=== PATIENT | male | born 1940 | race Caucasian/White ===

== ENCOUNTER → 2017-01-05 | Outpatient (CLI) | payer MEDICARE | END | disposition home or self-care (01) | LOC: PCVCCLINIC 12:31 | PROVIDERS: ATTEND Internal Medicine Cardiovascular Disease | DX: I25.10 Atherosclerotic heart disease of native coronary artery without angina pectoris (principal); I10 Essential (primary) hypertension; I44.1 Atrioventricular block, second degree; E78.00 Pure hypercholesterolemia, unspecified; F03.90 Unspecified dementia, unspecified severity, without behavioral disturbance, psychotic disturbance, mood disturbance, and anxiety; G45.9 Transient cerebral ischemic attack, unspecified; Z95.1 Presence of aortocoronary bypass graft; Z95.5 Presence of coronary angioplasty implant and graft; Z79.82 Long term (current) use of aspirin; Z79.899 Other long term (current) drug therapy | CPT/HCPCS: 93005; G0463 ==

== ENCOUNTER → 2017-07-04 | Outpatient (CLI) | payer MEDICARE | END | disposition home or self-care (01) | LOC: PCVCCLINIC 13:08 | PROVIDERS: ATTEND Internal Medicine Cardiovascular Disease | DX: I25.10 Atherosclerotic heart disease of native coronary artery without angina pectoris (principal); E78.00 Pure hypercholesterolemia, unspecified; I10 Essential (primary) hypertension; I82.409 Acute embolism and thrombosis of unspecified deep veins of unspecified lower extremity; R94.31 Abnormal electrocardiogram [ECG] [EKG]; I44.0 Atrioventricular block, first degree; Z79.899 Other long term (current) drug therapy; Z87.891 Personal history of nicotine dependence | CPT/HCPCS: 36415; 80061; 93005; G0463 ==

== ENCOUNTER → 2018-01-02 | Outpatient (CLI) | payer MEDICARE | END | disposition home or self-care (01) | LOC: PCVCIMAG 10:05 | DX: I08.1 Rheumatic disorders of both mitral and tricuspid valves (principal); I25.10 Atherosclerotic heart disease of native coronary artery without angina pectoris; I10 Essential (primary) hypertension; E78.00 Pure hypercholesterolemia, unspecified; I44.1 Atrioventricular block, second degree; Z95.1 Presence of aortocoronary bypass graft; Z87.891 Personal history of nicotine dependence | CPT/HCPCS: 93306; G0463 ==